=== PATIENT | female | born 1985 | race Caucasian/White ===

== ENCOUNTER 2017-03-15 17:45 | Outpatient (CLI) | payer BC, OTHER ==
[~2017-03-15] VITALS: Ht 175.3 cm; Wt 98.2 kg
[2017-03-15 17:58] VITALS: Ht 175.3 cm; Wt 98.2 kg
[2017-03-15 17:59] VITALS: BP 117/70; PULSE 80
[2017-03-15] MEDS ORDERED: PNV11TAB PO (18:00)
--- NOTE | 2017-03-15 18:55 | RADRPT ---
PROCEDURE: US OB biophysical profile. CLINICAL INDICATION: evaluation, intrauterine growth retardation TECHNIQUE: Multiple sonographic images of the pelvis were obtained. The images were reviewed on a PACS workstation. COMPARISON: No prior studies are available for comparison. FINDINGS: There is a single viable intrauterine gestation. Cardiac activity is present with 148 beats per min cary. There is a vertex presentation. The placenta is fundal. There is no evidence of placental abruption. There is a normal amount of amniotic fluid with an RACHAEL = 15.2 cm. Biophysical profile: movement 2/2 tone 2/2. breathing 2/2 RACHAEL 2/2 Total 12/22 RPTAT: AA . IMPRESSION: Normal biophysical profile. Physician Bob Date Time Electronically viewed and signed by Physician Bob on 03/15/2017 18:55 RA/
--- NOTE | 2017-03-15 18:57 | RADRPT ---
PROCEDURE: Obstetrical ultrasound CLINICAL INDICATION: Intrauterine growth retardation TECHNIQUE: Multiple sonographic images of the pelvis were obtained. The images were reviewed on a PACS workstation. COMPARISON: None FINDINGS: The cervix is not well visualized. There is a single viable intrauterine gestation. Cardiac activity is present with 133 beats per minute. There is a vertex presentation. The placenta is fundal. There is no evidence for an abruption or placenta previa. There is a normal amount of amniotic fluid with an RACHAEL = 15.2 cm. Measurements were made in order to determine age. The results are as follows (cm): BPD =9.19 HC =33.08 AC =35.82 FL =7.37 Estimated gestational age by ultrasound of approximately 38 weeks, 1 day. The estimated date of delivery by ultrasound is 03/28/2017. Estimated gestational age by LMP of approximately 40 weeks, 0 days. The estimated date of delivery by LMP is 03/15/2017. EFW = 3582 grams (46th percentile) IMPRESSION: Single viable intrauterine gestation of approximately 38 weeks, 1 day . The estimated date of delivery is 03/28/2017 . Dating by ultrasound is within 13 days of dating by LMP. Cephalic presentation. Normal RACHAEL. Estimated weight is 3582 g which is in the 46th percentile. RPTAT: EE Physician Bob Date Time Electronically viewed and signed by Physician Bob on 03/15/2017 18:57 /
--- NOTE | 2017-03-15 21:03 | PN ---
Triage Information Date/Time March 15, 2017 Reason for visit: Size less than dates Weeks of Gestation 40w /Para 4/2 Diabetes: none Hypertention: none Additional information PMHx: none. PSHx: none. NKDA. Objective Vital Signs Date Time Temp Pulse Resp B/P Pulse Ox O2 Delivery O2 Flow Rate FiO2 03/15/17 17:59 97.9 80 117/70 Heart Rate: 130's Heart Rate Comments Accels to 155 bpm. No decels. Contractions: 6-10 Minutes Apart Exam Closed/-3 Results/Medications Imaging Results BPP 12/22. RACHAEL 15.2 cm. VTX. EFW 3582 grams. Fundal placenta. Disposition: Discharge Assessment/Plan A: IUP at 40 weeks. S=D. P: D/C home. F/U as scheduled on Monday 03/19. Labor precautions reviewed. kick counts reviewed. EDMUND LOPEZ MD Mar 15, 2017 20:59
--- NOTE | 2017-03-15 21:04 | TRIAGE ---
OB Triage Datetime Report Generated by CPN: 03/15/2017 21:04 Datetime: 03/15/2017 20:41 Stage of : OB Triage Datetime: 03/15/2017 20:00 Labor Evaluation Frequency: 2-5 Monitor Mode: External Duration (sec)2399: 60-80 Quality: Mild Pattern: Normal: <= 5 Contractions in 10 Minutes Resting Tone [place]: Relaxed Heart Rate FHR Baseline Rate: 135 Monitor Mode: External US FHR Baseline Changes: No Baseline Change Variability: Moderate 6-25 bpm Accelerations: 15X15 Decelerations: None Category: Category I Datetime: 03/15/2017 19:12 Assessment Type: Triage Maternal Assessment Level of Consciousness: Fully Conscious DTR's/Clonus: DTRs 2+; No Clonus Headache: Denies Blurred Vision: No Respiratory Effort: Unlabored; Regular Rhythm; Equal Expansion Breath Sounds, Left: Clear and Equal Breath Sounds, Right: Clear and Equal Nausea/Vomiting: Denies RUQ Epigastric Pain: Denies Facial Edema: None Fall Risk Assessment History of Falling: (0) No Secondary Diagnosis: (0) No Ambulatory Aid: (0) Bedrest/Nurse Assist IV Therapy: (0) No Gait: (0) Normal/Bedrest/Immobile Mental Status: (0) Oriented to Own Ability Fall Score: 0 Fall Risk Score Definition: No Risk: No action required Datetime: 03/15/2017 18:04 Stage of : OB Triage Datetime: 03/15/2017 18:03 Vaginal Exam Dilatation (cms): 0.0 Station: -3 Exam By: betina milagro Vaginal Bleeding: None Cervix, Consistency: Soft Cervix, Position: Posterior Presentation 'A': Cephalic Datetime: 03/15/2017 17:55 Stage of : OB Triage Assessment Type: Triage EGA: 40.0 Maternal Assessment Level of Consciousness: Fully Conscious DTR's/Clonus: DTRs 2+; No Clonus Headache: Denies Blurred Vision: No Respiratory Effort: Unlabored; Regular Rhythm; Equal Expansion Breath Sounds, Left: Clear and Equal Breath Sounds, Right: Clear and Equal Nausea/Vomiting: Denies RUQ Epigastric Pain: Denies Facial Edema: None Temperature Route: Axillary Fall Risk Assessment History of Falling: (0) No Secondary Diagnosis: (0) No Ambulatory Aid: (0) Bedrest/Nurse Assist IV Therapy: (0) No Gait: (0) Normal/Bedrest/Immobile Mental Status: (0) Oriented to Own Ability Fall Score: 0 Fall Risk Score Definition: No Risk: No action required Labor Evaluation Frequency: 0 Monitor Mode: External Resting Tone [place]: Relaxed Heart Rate FHR Baseline Rate: 135 Monitor Mode: External US Variability: Moderate 6-25 bpm Accelerations: None Decelerations: None Category: Category I Pain Assessment Pain Scale: 0 Pain Presence: None/Denies Pain Type: N/A Pain Goal: 3 Pain Relief Measures: Comfort Measures Datetime: 03/15/2017 17:54 Time of Arrival: 03/15/2017 17:40 Arrived By: Ambulatory Arrived From: Dr. Office Chief Complaint: SENT FROM DR OFFICE FOR SIZE V DATES, DENIES LEAKING, BLEEDING OR UC'S Movement: Decreased Contractions: Denies/Absent Rupture of Membranes: Ruptured Vaginal Bleeding: None Vaginal Discharge: Denies Recent Sexual Intercouse: Denies Abdominal Trauma: Not Applicable Patient Complaints: None Time Provider Notified: 03/15/2017 19:20 Provider Notified: JESSE LOPEZ Initial Plan: MONITOR, VE
== END 2017-03-15 20:41 | disposition home or self-care (01) ==
LOC: OBT 17:45 → L-D 17:46 → OBT 20:41
PROVIDERS: ATTEND Obstetrics & Gynecology
DX: O26.843 Uterine size-date discrepancy, third trimester (principal); Z3A.40 40 weeks gestation of pregnancy
CPT/HCPCS: 76815; 76818; G0463

== ENCOUNTER 2017-03-22 14:21 | Inpatient (IN) | END 2017-03-25 15:45 | disposition home or self-care (01) | DRG 775 | DX: O48.0 Post-term pregnancy (principal); O70.0 First degree perineal laceration during delivery; Z3A.41 41 weeks gestation of pregnancy; Z37.0 Single live birth ==